=== PATIENT | male | born 1950 | race Caucasian/White ===

== ENCOUNTER → 2021-11-24 | Outpatient (CLI) | payer MEDICARE, BC ==
[2015-03-03 10:24] VITALS: BP 110/79
[~2021-11-24] MED LIST: ATOR20TA58 PO; CEPH-264 PO; ERYT250C33 PO; FENO145T3 PO; GABA300C18 PO; GLYB1TAB18 PO; HYDR-2765 PO; LEVO500T59 PO; MELO7.5T29 PO; OMEP40CA7 PO; OXYC-325 PO; OXYC1TAB19 PO; SITA100T PO; VALS160T27 PO; VALS160T3 PO
== END ==
LOC: LAB 09:58
PROVIDERS: ATTEND Orthopaedic Surgery Sports Medicine
DX: Z01.812 Encounter for preprocedural laboratory examination (principal); Z20.822 Contact with and (suspected) exposure to COVID-19; M75.121 Complete rotator cuff tear or rupture of right shoulder, not specified as traumatic
CPT/HCPCS: U0003

== ENCOUNTER 2021-11-28 08:04 | Day surgery (SDC) | payer MEDICARE, BC ==
[~2021-11-28] VITALS: Ht 177.8 cm; Wt 104.0 kg
[~2021-11-28 08:04] MED LIST changes: +EPINEPHrine VIAL 30 MG/30 ML VIAL ONE; +HYDROmorphone 2 MG/ML INJ. IVP PRN; +MORPHINE SULFATE 2 MG/ML INJ. IVP PRN; -OXYC-325 PO; +PROCHLORPERAZINE 10 MG/2 ML VIAL. IVP PRN; -SITA100T PO; -VALS160T3 PO; +fentaNYL PF VIAL 100 MCG/2 ML VIAL IVP PRN
[2021-11-28] MEDS ORDERED: ROCURONIUM 50 MG/5 ML VIAL. ONE ×2 (08:17→08:23)
[2021-11-28] MEDS ORDERED: DEXAMETHASONE SOD PHOS 4 MG/ML VIAL ONE (08:17)
[2021-11-28] MEDS ORDERED: PROPOFOL 10 MG/ML (20ML) VIAL. IV ONE (08:17)
[2021-11-28] MEDS ORDERED: LIDOCAINE 2% PF 5 ML VIAL. ONE (08:17)
[2021-11-28] MEDS ORDERED: GLYCOPYRROLATE 1 MG/5 ML VIAL. ONE (08:17)
[2021-11-28] MEDS ORDERED: NEOSTIGMINE METHYLSULFATE 5 MG/5 ML SYRINGE. ONE (08:17)
[2021-11-28] MEDS ORDERED: ONDANSETRON PF 4 MG/2 ML VIAL. ONE (08:17)
[2021-11-28] MEDS ORDERED: fentaNYL PF VIAL 100 MCG/2 ML VIAL ONE (08:18)
[2021-11-28] MEDS ORDERED: SITA100T PO (08:29)
[2021-11-28] MEDS ORDERED: VALS160T3 PO (08:29)
[2021-11-28 08:35] VITALS: BP 119/74
[2021-11-28] MEDS: IV RINGERS,LACTATED 1000ML 1,000 ML IV SCH ×2 (08:37→12:10)
[2021-11-28] MEDS: INSULIN LISPRO 100 UNIT/ML 3ML VIAL for OP,RR ONLY. SQ PRN ×3 (08:43→12:44)
[2021-11-28] MEDS ORDERED: MIDAZOLAM HCL/PF 2 MG/2 ML VIAL. ONE (08:44)
[2021-11-28] MEDS ORDERED: ROPIVacaine 0.5% PF 20 ML VIAL. ONE (08:44)
[2021-11-28] MEDS ORDERED: OXYC-325 PO (09:52)
--- NOTE | 2021-11-28 09:53 | DISCH ---
DISCHARGE INSTRUCTIONS Condition on Discharge Condition on Discharge: Stable Activity After Discharge Activity Instructions for Disc: Activity as tolerated, Other ROM activity Other activity instructions: Arm to remain in sling Bathing Instructions: Shower-keep dressing dry Weight Bearing Status after Di: Non weight bearing Diet after Discharge Diet after Discharge: Regular, Diabetic No Calorie Level Wound Incision Care Wound/Incision Care: Ice to area for comfort, Keep wound/cast CDI, Change dressing Other wound/incision instructi: Change dressing in [address] after DC Call your doctor for: Concerns you may have Follow-Up Follow up with: Surgeon in 2 weeks Treatment/Equipment after DC Adaptive Equipment Issued: None CAYDEN JACK II, MD Nov 28, 2021 09:53
[2021-11-28] MEDS ORDERED: PHENYLEPHRINE 10 MG/ML VIAL. ONE ×3 (10:10→10:30)
[2021-11-28] MEDS ORDERED: KETOROLAC 30 MG/ML VIAL. ONE (11:03)
[2021-11-28] MEDS ORDERED: BUPIVACAINE-EPI 0.5% 30 ML VIAL KIT. ONE (11:04)
[2021-11-28] MEDS ORDERED: oxyCODONE/APAP 5/325 1 TAB TABLET PO ONE (12:00)
--- NOTE | 2021-11-28 12:36 | PDOC4 ---
Operative Note Operative Note Date of procedure: 11/28/2021 Surgeon: Francisco Jack Assistants: Solomon Rivas and Ivette Sandoval board certified music therapist is Pre-op diagnosis: Right shoulder rotator cuff tear Postop diagnosis: Same Procedure performed: Arthroscopic right shoulder rotator cuff repair Findings: 1. Patient had a longitudinal split in his supraspinatus tendon, remainder of rotator cuff intact 2. Biceps and labrum intact without pathology 3. Glenohumeral cartilage unremarkable 4. No loose bodies Blood loss: 5 mL Anesthesia: General plus regional nerve block Components inserted: [employer] Helacoil anchor Complications: None Reason for procedure: Patient is a very pleasant 71-year-old active gentleman who had persistent shoulder pain and weakness attributable to the pain. Clinical and radiographic examination were consistent with the above preoperative diagnosis and after discussion of the risks, benefits, alternatives he elected to proceed with surgery. He had tried and failed conservative therapies. Description of procedure: Patient was greeted in the preoperative area by myself or the correct extremity was verified and marked. He had placement of a regional nerve block by the anesthesiology team and was taken back to the operative suite. His antibiotics were started as he was brought back. Once in the operating room, he was transferred gently supine to the operating room table and underwent successful induction of a general anesthetic. We then proceeded to set him up in a beachchair position taking care all pressure points were padded and C-spine was maintained in neutral position. We then proceeded prep and drape right upper extremity and shoulder girdle in our usual sterile fashion and conducted our standard preoperative timeout. Ioban was used at the periphery. I then palpated marked surface anatomy and tl lines for my planned arthroscopic portals. I used a spinal needle to localize a posterior superior portal and incised skin accordance with that. I introduced the blunt arthroscopic trocar into the glenohumeral joint followed by the camera and used a spinal needle to localize an anterosuperior portal, incising skin accordance with this and then getting into the glenohumeral joint with a switching stick followed by introducing my probe. I then conducted my diagnostic arthroscopy with the above-noted findings. After this, I do the instrumentation from the glenohumeral joint and repositioned the camera into the subacromial space, used a spinal to localize an lateral portal and incised skin accordance with this and dilated this well. I then performed a bursectomy with combination of shaver and electrocautery device. I then debrided the rotator cuff tendon at the margins and prepared my footprint. After this I shuttled a free #2 ultra braid sutures through the more medial aspect of the tear with a [employer]. I then placed my suture anchor after creating the hole and shuttled the limbs through in a mattress type configuration. I then tied these down to reapproximate the tear. After this, the tear was stable to probing and gentle rotation of the arm. The arthroscopic instrumentation was removed after I made sure to perform repeated aspiration maneuvers through the shaver to remove any loose bony debris. Local anesthetic was injected into the. Portal incisional areas. He tolerated surgery well. No complications. At the conclusion, the arm and shoulder were cleansed dried and a sterile dressing was applied followed by an abduction pillow sling. He was laid supine and transferred gently supine to the recovery room cart and taken to PACU in stable and extubated condition. Postoperative plan is to discharge him home. He will be nonweightbearing for 4 weeks. We will get him started on physical therapy. I will see him back in 2 weeks, sooner should a problem arise. FRANCISCO JACK II, MD Nov 28, 2021 12:36
[2021-11-28] MEDS ORDERED: INSULIN LISPRO 100 UNIT/ML 3ML VIAL for OP,RR ONLY. SQ ONE ×3 (12:45)
[2021-11-28 13:30] VITALS: BP 110/66
== END 2021-11-28 13:40 | disposition home or self-care (01) ==
LOC: SURG 08:04
PROVIDERS: ATTEND Orthopaedic Surgery Sports Medicine
DX: M75.101 Unspecified rotator cuff tear or rupture of right shoulder, not specified as traumatic (principal); I10 Essential (primary) hypertension; E78.00 Pure hypercholesterolemia, unspecified; E11.9 Type 2 diabetes mellitus without complications; K21.9 Gastro-esophageal reflux disease without esophagitis; M19.90 Unspecified osteoarthritis, unspecified site; Z87.891 Personal history of nicotine dependence; Z90.49 Acquired absence of other specified parts of digestive tract; Z98.890 Other specified postprocedural states; Z79.899 Other long term (current) drug therapy; Z72.89 Other problems related to lifestyle
CPT/HCPCS: 29827; 64415; 82962; A4209; A4355; A4930; A6253; C1713; J0171; J0690; J1100; J1815; J1885; J2250; J2370; J2405; J2704; J2710; J2795; J3010; J3490; A4452